=== PATIENT | female | born 1985 | race Caucasian/White ===

== ENCOUNTER 2017-07-24 19:52 | Emergency (ER) | payer OTHER | END 2017-07-24 20:37 | disposition home or self-care (01) | LOC: E/R 19:52 | DX: J06.9 Acute upper respiratory infection, unspecified (principal); H65.01 Acute serous otitis media, right ear; E11.9 Type 2 diabetes mellitus without complications; Z79.4 Long term (current) use of insulin | CPT/HCPCS: 99284; Z7502 ==

== ENCOUNTER 2017-12-28 16:44 | Emergency (ER) | payer OTHER | END 2017-12-28 18:07 | disposition home or self-care (01) | LOC: FTE 16:44 | DX: K62.5 Hemorrhage of anus and rectum (principal); E10.9 Type 1 diabetes mellitus without complications; Z79.4 Long term (current) use of insulin | CPT/HCPCS: 99282; Z7502 ==